=== PATIENT | female | born 2000 | race Caucasian/White ===

== ENCOUNTER 2022-01-31 06:00 | Outpatient (RCR) | payer OTHER, MEDICARE, SELFPAY | END 2022-02-06 23:59 | disposition home or self-care (01) | LOC: MOT 06:00 | PROVIDERS: Referring Provider Psychiatry & Neurology Neurology; Visit Provider Psychiatry & Neurology Neurology | DX: R25.2 Cramp and spasm (principal); G40.109 Localization-related (focal) (partial) symptomatic epilepsy and epileptic syndromes with simple partial seizures, not intractable, without status epilepticus; Z86.79 Personal history of other diseases of the circulatory system | CPT/HCPCS: 97165; 97535 ==

== ENCOUNTER 2022-02-07 06:00 | Outpatient (RCR) | payer OTHER, MEDICARE, SELFPAY | END 2022-03-09 23:59 | disposition home or self-care (01) | LOC: MOT 06:00 | PROVIDERS: Referring Provider Psychiatry & Neurology Neurology; Visit Provider Psychiatry & Neurology Neurology | DX: R25.2 Cramp and spasm (principal) | CPT/HCPCS: 97110; 97535; 97760 ==

== ENCOUNTER 2024-10-08 05:00 | Outpatient (RCR) | payer OTHER, MEDICARE, SELFPAY | END 2024-11-06 23:59 | disposition home or self-care (01) | LOC: MPT 05:00 | PROVIDERS: Visit Provider Family Medicine | DX: Z47.89 Encounter for other orthopedic aftercare (principal) | CPT/HCPCS: 97110; 97140; 97162 ==

== ENCOUNTER 2024-12-08 05:00 | Outpatient (RCR) | payer OTHER, MEDICARE, SELFPAY | END 2025-01-06 23:59 | disposition home or self-care (01) | LOC: MPT 05:00 | PROVIDERS: Visit Provider Physical Medicine & Rehabilitation | DX: M54.50 Low back pain, unspecified (principal) | CPT/HCPCS: 97110; 97162; G0283 ==

== ENCOUNTER 2025-01-07 05:00 | Outpatient (RCR) | payer OTHER, MEDICARE, SELFPAY | END 2025-02-06 23:59 | disposition home or self-care (01) | LOC: MPT 05:00 | PROVIDERS: Visit Provider Physical Medicine & Rehabilitation | DX: M54.50 Low back pain, unspecified (principal) | CPT/HCPCS: 97110; 97140; G0283 ==

== ENCOUNTER 2025-02-07 05:00 | Outpatient (RCR) | payer OTHER, MEDICARE, SELFPAY | END 2025-02-21 07:49 | disposition home or self-care (01) | LOC: MPT 05:00 | PROVIDERS: Visit Provider Physical Medicine & Rehabilitation | DX: M54.59 Other low back pain (principal) | CPT/HCPCS: 97110; G0283 ==